=== PATIENT | female | born 1990 | race Caucasian/White ===

== ENCOUNTER 2021-03-29 10:17 | Emergency (ER) | payer OTHER, SELFPAY ==
--- NOTE | ~2021-03-29 | XR_ITS ---
EXAMINATION: XR CHEST CLINICAL INFORMATION: Cough COMPARISON: None TECHNIQUE: 2 views of the chest were obtained. FINDINGS: No significant abnormality is noted involving the heart, lungs, mediastinum, bony thorax or soft tissues. XR/XR chest 2V IMPRESSION: Unremarkable examination.
[2021-03-29 10:43] VITALS: BP 114/95; PULSE 100; RESP 18; TEMP 37.3; O2SAT 99; BMI 26.5
[2021-03-29] MEDS: Azithromycin 500 MG TABLET PO (12:05)
[2021-03-29] MEDS: predniSONE 20 MG TABLET 60 MG PO (12:05)
[2021-03-29 12:26] LABS: COVID-19 Test Negative (Negative)
--- NOTE | 2021-03-29 12:28 | ED_ITS ---
HPI - URI/Sore Throat General Chief Complaint: Upper Respiratory Symptoms Stated Complaint: SOB,chest pain Time Seen by Provider: 03/29/21 11:44 Source: patient Mode of arrival: ambulatory Limitations: no limitations History of Present Illness HPI Narrative: 30-year-old female with a past medical history of asthma here with complaints cough, chest wall discomfort x1 week. Seen in urgent care initially had negative COVID screen. Given test on both having continued symptoms. Shortness of breath, leg swelling, pain, vomiting, diarrhea, abdominal pain. No fevers or chills. She is fully immunized with COVID vaccine Related Data Previous Rx's Medication Instructions Recorded acetaminophen-DM [Robitussin 20 ml PO Q4H PRN #237 ml 03/29/21 Cough-Sore Throat] albuterol sulfate 2 inh INHALATION Q4H PRN #1 ea 03/29/21 azithromycin 250 mg PO DAILY 4 Days #4 tab 03/29/21 prednisone 40 mg PO DAILY #8 tab 03/29/21 Allergies Allergy/AdvReac Type Severity Reaction Status Date / Time amoxicillin [AMOXICILLIN] Allergy Unknown HIVES Verified 03/29/21 10:42 Review of Systems Review of Systems: Yes all other systems are reviewed and are negative Constitutional: Constitutional: Reports no additional constitutional complaints, Denies body ache(s), Denies chills, Denies fever(s), Denies headache(s) and Denies weakness Eyes: Eyes: Reports no additional eye complaints and Denies change in vision ENT: Reports system reviewed and no additional complaints, except as documented, Denies dizziness, Denies headache(s), Denies nasal congestion, Denies nasal discharge and Denies neck pain Cardiovascular: Cardiovascular: Reports no additional cardiovascular co mplaints, Reports chest pain, Denies leg edema and Denies dyspnea Respiratory: Respiratory: Reports no additional respiratory complaints, Reports cough and Denies dyspnea Gastrointestinal: Gastrointestinal: Reports no additional gastrointestinal complaints, Denies abdominal pain, Denies diarrhea, Denies nausea and Denies vomiting Genitourinary: Genitourinary: Reports no additional female genitourinary complaints and Denies urinary incontinence Musculoskeletal: Musculoskeletal: Reports no additional musculoskeletal complaints, Denies back pain, Denies arthralgias, Denies joint swelling, Denies neck pain, Denies numbness and Denies tingling Integumentary/Breasts: Skin/Breast: Reports system reviewed and no additional complaints, except as docu and Denies rash Neurologic: Denies Abnormal speech present, Denies dizziness, Denies headache(s), Denies numbness, Denies tingling and Denies weakness PMFSH Past Medical History Attestation statement: The following information was validated with the patient. Source: old records reviewed and nursing notes reviewed Medical History Asthma Social History Social History Advance Directives: Yes Advance Directives Information Provided: No Advance Directives on File: No Physical Exam Vital Signs: Vital Signs: Last Vital Signs Temp 99.1 F 03/29/21 10:43 Pulse 100 03/29/21 10:43 Resp 18 03/29/21 10:43 BP 114/95 H 03/29/21 10:43 Pulse Ox 99 03/29/21 10:43 Body Mass Index 26.5 Const: General: cooperative, healthy appearing, comfortable and no acute distress Orientation/consciousness: patient oriented x3 Limitations: no limitations HENMT: Head: Yes normal to inspection Ears: hearing grossly normal bilaterally General nose exam: Normal external nose present Face and sinus: Yes normal facial exam Mouth: Normal oral and palatal mucosa present Throat: Yes posterior oropharynx normal Eyes: General: appearance normal, both eyes and all related structures Pupils: Equal, round and reactive pupils present Neck: Neck: Yes normal visual inspection Chest: Chest palpation & inspection: normal inspection of the chest Resp: Other: Prolonged expirations, mild expiratory wheezing Effort & Inspection: normal respiratory effort Auscultation: clear to auscultation bilaterally Cardio: Rate: regular rate Rhythm: regular rhythm Peripheral pulses: Peripheral pulses 2+ throughout GI: Inspection: Yes normal to inspection Palpation (GI): Soft to palpation and nontender Auscultation: normal bowel sounds Back/Spine/Pelvis: Thoracic/Lumbar Spine: thoracic and lumbar spine normal to inspection Skin: General skin exam: no rashes or lesions noted Neuro: General: patient oriented x3, no focal motor deficits and normal sensation to monofilament Cranial nerves: Yes Equal, round and reactive pupils present Cognition (Neuro): normal cognition Speech: No Abnormal speech present Gait exam (Neuro): Normal gait present Motor exam (neuro): 5/5 motor strength present throughout Extrem: General: Yes normal to inspection, Yes no pedal edema and Yes no calf tenderness Course Course Course Narrative: URI symptoms x1 week despite supportive measures. Will check x-ray and COVID screen. 1200-COVID screen negative. Chest x-ray shows no acute finding. Likely bronchitis. Will treat with course of antibiotics and prednisone. Reviewed worrisome signs and symptoms and when to return to the emergency department. Comfortable discharge home. MDM - URI/Sore Throat Differential Diagnosis Differential diagnosis: Likely upper respiratory infection Medical Records Attestation: I reviewed the patient's medical records. Lab Data Attestation: I reviewed the patient's lab results. Labs: Lab Results 03/29/21 Range/Units 11:58 COVID-19 (EMILIANO) Negative (Negative) COVID-19 Clin Com See Note Imaging Data Chest x-ray: Attestation: I personally reviewed and interpreted this imaging study as follows: Radiologist's impression: dure(s): XR chest 2V Accession Number(s): [id number] cc: Generic ED Physician~ EXAMINATION: XR CHEST CLINICAL INFORMATION: Cough COMPARISON: None TECHNIQUE: 2 views of the chest were obtained. FINDINGS: No significant abnormality is noted involving the heart, lungs, mediastinum, bony thorax or soft tissues. XR/XR chest 2V IMPRESSION: Unremarkable examination. Discharge Plan Discharge Clinical Impression: Bronchitis Patient Disposition: Home, Self-Care Instructions: Acute Bronchitis (ED) Additional Instructions: COVID test negative Next dose of prednisone and antibiotics tomorrow Increase fluids, rest Continue your inhaler as needed Motrin or Tylenol for pain or fever Prescriptions: New azithromycin 250 mg tablet 250 mg PO DAILY 4 Days Qty: 4 RF: 0 prednisone 20 mg tablet 40 mg PO DAILY Qty: 8 RF: 0 albuterol sulfate 90 mcg/actuation aerosol powdr breath activated 2 inh inhalation Q4H PRN (Reason: shortness of breath or wheezing) Qty: 1 RF: 0 Robitussin Cough-Sore Throat 325-10 mg/10 mL liquid 20 ml PO Q4H PRN (Reason: cold symptoms) Qty: 237 RF: 0 Referrals: Terri Nguyen MD [Primary Care Provider] - 2 days Stand Alone Forms: Work/School Release
== END 2021-03-29 12:45 | disposition home or self-care (01) ==
PROVIDERS: Nurse Practitioner Family; Emergency Provider Emergency Medicine Emergency Medical Services; PCP Internal Medicine
DX: J40 Bronchitis, not specified as acute or chronic (principal); Z20.822 Contact with and (suspected) exposure to COVID-19; R06.02 Shortness of breath; J45.909 Unspecified asthma, uncomplicated; Z79.899 Other long term (current) drug therapy
CPT/HCPCS: 36415; 71046; 87635; 99283

== ENCOUNTER 2023-05-10 06:17 | Emergency (ER) | payer MEDICAID, SELFPAY ==
--- NOTE | 2023-05-10 | ECG_ITS ---
Test Reason : chest pain Blood Pressure : / mmHG Vent. Rate : 074 BPM Atrial Rate : 074 BPM P-R Int : 136 ms QRS Dur : 070 ms QT Int : 376 ms P-R-T Axes : 049 049 029 degrees QTc Int : 417 ms Sinus rhythm with Premature atrial complexes Otherwise normal ECG No previous ECGs available Referred By: Generic ED Physician Electronically Signed By:SARA GARNER
--- NOTE | ~2023-05-10 | XR_ITS ---
EXAMINATION: XR CHEST CLINICAL INFORMATION: Cough, chest pain, shortness of breath. COMPARISON: 03/29/2021 TECHNIQUE: Frontal view of the chest was obtained. FINDINGS: Lungs are well-inflated and clear. Trachea is midline in position. No interstitial disease, consolidation or mass. No pleural effusion or pneumothorax. Cardiac silhouette and pulmonary vessels are normal in size. The mediastinum and mehrdad have normal contour. EKG leads overlie the chest. The visualized bones and upper abdomen are unremarkable. XR/XR chest 1V IMPRESSION: No acute cardiopulmonary abnormality.
[2023-05-10 06:25] VITALS: BP 120/63; PULSE 73; RESP 18; TEMP 36.8; O2SAT 98; BMI 27.5
[2023-05-10 06:38] LABS: Hematocrit 40.2 % (37.0-47.0); Hemoglobin 12.9 g/dl (12.0-16.0); Mean Corpuscular HGB Conc 32.1 g/dl (31.0-35.0); Mean Platelet Volume 9.3 fL (9.4-12.3); Platelet Count 278 X10*3/uL (160-400); Red Blood Count 4.96 X10*6/uL (4.20-5.50); White Blood Count 8.9 X10*3/uL (4.8-10.8)
[2023-05-10 06:52] LABS: Alanine Aminotransferase 29 U/L (0-31); Alkaline Phosphatase 76 U/L (39-117); Anion Gap 11 (12-20); Aspartate Amino Transferase 24 U/L (5-31); Bilirubin Total 0.5 mg/dL (0.0-1.0); Blood Urea Nitrogen 17 mg/dL (9-16); Calcium 9.2 mg/dL (8.4-10.2); Carbon Dioxide 26 mmol/L (22-29); Chloride 109 mmol/L (96-108); Creatinine Clr Calc Pharmacy 96.7; Estimated Glomerular Filt Rate > 60; Glucose Random 90 mg/dL (60-115); Potassium 4.1 mmol/L (3.3-5.1); Sodium 142 mmol/L (135-145); Total Protein 6.7 g/dL (6.5-8.0)
--- NOTE | 2023-05-10 07:08 | ED.CHESTPAIN ---
HPI - Chest Pain General Chief Complaint: Chest Pain Stated Complaint: Chest Pain Time Seen by Provider: 05/10/23 07:07 Source: patient, RN notes reviewed and old records reviewed Mode of arrival: ambulatory History of Present Illness HPI narrative: 32-year-old female with a past medical history of asthma presenting to the ED complaining of intermittent substernal chest pain x5 days with associated migraine headache, dry cough, left ear pain, and mild SOB. Admits has been taking her sumatriptan at home without relief. Headache not maximal at onset. Denies recent travel, fever/chills, sick contacts, cigarette smoking, sore throat, pedal edema MD complaint: chest pain Related Data Previous Rx's Medication Instructions Recorded acetaminophen 325 mg-DM 10 mg/10 20 ml PO Q4H PRN cold symptoms 03/29/21 mL oral liquid (Robitussin #237 mL Cough-Sore Throat) albuterol sulfate 90 mcg/actuation 2 inh inhalation Q4H PRN shortness 03/29/21 breath activated powder inhaler of breath or wheezing #1 ea azithromycin 250 mg tablet 250 mg PO DAILY 4 days #4 tabs 03/29/21 prednisone 20 mg tablet 40 mg PO DAILY #8 tabs 03/29/21 Allergies Allergy/AdvReac Type Severity Reaction Status Date / Time amoxicillin [AMOXICILLIN] Allergy Unknown HIVES Verified 03/29/21 10:42 Review of Systems Review of Systems: Constitutional: No Fever, No Chills, + Fatigue, No Malaise ENT/Mouth: No Hearing loss, No Ear Pain, No Nasal Congestion, No sore throat, No Rhinorrhea, No Swallowing Difficulty Eyes: No Eye Pain, No Swelling,No Vision Changes Cardiovascular: + Chest Pain, + SOB, No Dyspnea on Exertion, No Orthopnea, No Edema, No Palpitations Respiratory: + Cough, No Sputum, No Wheezing, No Dyspnea Gastrointestinal: No Nausea, No Vomiting, No Diarrhea, No Constipation, No Abdominal pain Musculoskeletal: No joint pain, No Myalgias, No Joint Swelling Skin: No Skin Lesions, No rash Neuro: No Weakness, No Numbness, No Dizziness, + Headache Yes all other systems are reviewed and are negative Constitutional: Constitutional: Reports as per [facility] Past Medical History Attestation statement: The following information was validated with the patient. Source: old records reviewed Medical History Asthma Social History Social History Smoked in Last 30 Days: No Use of substances other than those prescribed or required for medical reasons: No Advance Directives: No Advance Directives Information Provided: No Physical Exam Vital Signs: Vital Signs: Last Vital Signs Temp 98.1 F 05/10/23 10:23 Pulse 71 05/10/23 10:23 Resp 13 05/10/23 10:23 BP 97/60 05/10/23 10:23 Pulse Ox 98 05/10/23 10:23 O2 Del Method Room Air 05/10/23 10:23 BMI result Body Mass Index 27.5 Const: General: cooperative, healthy appearing and no acute distress Orientation/consciousness: patient oriented x3 Limitations: no limitations HEENT: Head: Yes normal to inspection and Yes atraumatic Ears: hearing grossly normal bilaterally, external ears normal, TM's normal bilaterally and mastoids normal General nose exam: Normal external nose present Face and sinus: Yes normal facial exam Mouth: Normal oral and palatal mucosa present Throat: Yes posterior oropharynx normal, Yes tonsils normal and Yes uvula midline Eyes: General: appearance normal, both eyes and all related structures EOM: EOMs intact bilaterally Neck: Neck: Yes normal visual inspection and Yes no meningeal signs Resp: Effort & Inspection: normal respiratory effort and no respiratory distress Auscultation: clear to auscultation bilaterally, no crackles, no rhonchi and no wheezes Cardio: Rate: regular rate Heart sounds: S1 normal heart sound present and S2 normal heart sound present GI: Inspection: Yes normal to inspection Palpation (GI): Soft to palpation, nontender, no guarding and not rigid : General: Yes no CVA tenderness Back/Spine/Pelvis: Back: no CVA tenderness Skin: Rashes: no rashes Wounds: no wounds Neuro: General: patient oriented x3, tone normal and no meningeal signs Cranial nerves: Yes CN's II-XII intact bilaterally Gait exam (Neuro): Normal gait present Extrem: General: Yes normal to inspection Course Course Course Narrative: -0935--labs reassuring, troponin negative. COVID and influenza negative XR chest 1V IMPRESSION: No acute cardiopulmonary abnormality. -on re-evaluation results discussed, patient reports continued headache will try p.o. Fioricet -1045--on re-evaluation patient reports symptomatic improvement/headache resolved after p.o. Fioricet >> Results discussed with patient including worrisome signs and symptoms and strict return precautions, and when to return to the emergency department. They verbalized understanding and feel safe for discharge at this time. Medications Administered Discontinued Medications Generic Name Dose Route Start Last Admin Trade Name Freq PRN Reason Stop Dose Admin Acetaminophen/Butalbital/Caffeine 2 tab 05/10/23 09:37 05/10/23 10:20 Butalb/Acetamin/Caff 50/325/40 Tablet PO 05/10/23 09:38 2 tab ONCE ONE Administration Diphenhydramine HCl 12.5 mg 05/10/23 07:27 05/10/23 07:34 Diphenhydramine Hcl 50 Mg/Ml Vial IVPUSH 05/10/23 07:28 12.5 mg ONCE ONE Administration Ketorolac Tromethamine 15 mg 05/10/23 07:27 05/10/23 07:34 Ketorolac Tromethamine 15 Mg/Ml Vial IVPUSH 05/10/23 07:28 15 mg ONCE ONE Administration Metoclopramide HCl 10 mg 05/10/23 07:27 05/10/23 07:34 Metoclopramide Hcl 10 Mg/2 Ml Vial IVPUSH 05/10/23 07:28 10 mg ONCE ONE Administration Medical Decision Making Medical Decision Making MDM Narrative: 32-year-old female with a past medical history of asthma presenting to the ED complaining of intermittent substernal chest pain x5 days with associated migraine headache, dry cough, left ear pain, and mild SOB. On exam vital signs stable, NAD, nontoxic appearing, chest pain not reproducible, lungs CTA, exam otherwise nonfocal. Concern for viral syndrome vs bronchitis, rule out pneumonia. Concern for migraine headache. Low suspicion for meningitis/encephalitis, ICH, otitis media/externa. Symptoms atypical PE/ACS Plan: EKG, labs, viral testing, CXR, IVF, Toradol/Reglan/Benadryl Please refer to course for remaining clinical decision making, interpretation of labs/imaging results, and discussions with consultants and/or family members. Differential Diagnosis Differential Diagnoses: The differential diagnosis associated with the presentation includes As above Admission/Observation Consideration of admission/observation: Escalation of care including admission/observation considered Lab Data MDM Lab Attestation statement: I reviewed the patient's lab results. 05/10/23 06:31 05/10/23 06:31 Labs: Lab Results 05/10/23 05/10/23 05/10/23 Range/Units 06:31 06:31 06:31 WBC 8.9 (4.8-10.8) X10*3/uL RBC 4.96 (4.20-5.50) X10*6/uL Hgb 12.9 (12.0-16.0) g/dl Hct 40.2 (37.0-47.0) % MCV 81.0 (80.0-98.0) fL MCH 26.0 L (27.0-33.0) pg MCHC 32.1 (31.0-35.0) g/dl RDW 14.0 (11.0-16.0) % Plt Count 278 (160-400) X10*3/uL MPV 9.3 L (9.4-12.3) fL Immature Gran % (Auto) 0.2 (0.0-0.4) % Neut % (Auto) 55.9 (45-73) % Lymph % (Auto) 35.8 (20-40) % [place] % (Auto) 5.5 (2-11) % Eos % (Auto) 1.9 (0-4) % Baso % (Auto) 0.7 (0-2) % Lymph # (Auto) 3.2 (1.2-4.9) X10*3/uL [place] # (Auto) 0.5 (0.1-1.2) X10*3/uL Eos # (Auto) 0.2 (0.0-0.4) X10*3/uL Baso # (Auto) 0.1 (0.0-0.2) X10*3/uL Abs Immat Gran (auto) 0.02 (0.00-0.03) X10*3/uL Absolute Neuts (auto) 4.9 (2.0-8.3) x10*3/uL Absolute Nucleated RBC 0.000 (0.0-0.012) X10*3/uL Nucleated RBC % (auto) 0.0 (0.0-0.2) /100WBC Sodium 142 (135-145) mmol/L Potassium 4.1 (3.3-5.1) mmol/L Chloride 109 H (96-108) mmol/L Carbon Dioxide 26 (22-29) mmol/L Anion Gap 11 L (12-20) BUN 17 H (9-16) mg/dL Creatinine 0.83 (0.5-1.4) mg/dL Estim Creat Clear Calc 96.7 Estimated GFR > 60 Random Glucose 90 (60-115) mg/dL Calcium 9.2 (8.4-10.2) mg/dL Total Bilirubin 0.5 (0.0-1.0) mg/dL AST 24 (5-31) U/L ALT 29 (0-31) U/L Alkaline Phosphatase 76 (39-117) U/L Troponin I High Sens < 2.7 (<3.5-17.0) ng/L Total Protein 6.7 (6.5-8.0) g/dL Albumin 4.0 (3.5-5.0) g/dL COVID-19 (EMILIANO) (Negative) COVID-19 Clin Com Influenza Type A (RAFAEL) (Negative) Influenza Type B (RAFAEL) (Negative) Influenza A & B Note 05/10/23 05/10/23 Range/Units 07:44 07:44 WBC (4.8-10.8) X10*3/uL RBC (4.20-5.50) X10*6/uL Hgb (12.0-16.0) g/dl Hct (37.0-47.0) % MCV (80.0-98.0) fL MCH (27.0-33.0) pg MCHC (31.0-35.0) g/dl RDW (11.0-16.0) % Plt Count (160-400) X10*3/uL MPV (9.4-12.3) fL Immature Gran % (Auto) (0.0-0.4) % Neut % (Auto) (45-73) % Lymph % (Auto) (20-40) % [place] % (Auto) (2-11) % Eos % (Auto) (0-4) % Baso % (Auto) (0-2) % Lymph # (Auto) (1.2-4.9) X10*3/uL [place] # (Auto) (0.1-1.2) X10*3/uL Eos # (Auto) (0.0-0.4) X10*3/uL Baso # (Auto) (0.0-0.2) X10*3/uL Abs Immat Gran (auto) (0.00-0.03) X10*3/uL Absolute Neuts (auto) (2.0-8.3) x10*3/uL Absolute Nucleated RBC (0.0-0.012) X10*3/uL Nucleated RBC % (auto) (0.0-0.2) /100WBC Sodium (135-145) mmol/L Potassium (3.3-5.1) mmol/L Chloride (96-108) mmol/L Carbon Dioxide (22-29) mmol/L Anion Gap (12-20) BUN (9-16) mg/dL Creatinine (0.5-1.4) mg/dL Estim Creat Clear Calc Estimated GFR Random Glucose (60-115) mg/dL Calcium (8.4-10.2) mg/dL Total Bilirubin (0.0-1.0) mg/dL AST (5-31) U/L ALT (0-31) U/L Alkaline Phosphatase (39-117) U/L Troponin I High Sens (<3.5-17.0) ng/L Total Protein (6.5-8.0) g/dL Albumin (3.5-5.0) g/dL COVID-19 (EMILIANO) Negative (Negative) COVID-19 Clin Com See Note Influenza Type A (RAFAEL) Negative (Negative) Influenza Type B (RAFAEL) Negative (Negative) Influenza A & B Note See Note Independent Interpretation I performed an independent interpretation of an: EKG Radiology Impression Discussion of test interpretation with radiology: I have reviewed the radiologist's reading. External Record Review External record reviewed: Inpatient record, Office record, Outpatient record, Prior outpatient labs, Prior outpatient radiology, Primary care record and Outside ED record Tests considered The following testing was considered but not selected: As above Prescription Management I considered prescription management with: Pain Medication Chronic Conditions Patient?s care impacted by: Other (asthma) Discharge Plan Discharge Clinical Impression: Atypical chest pain, Acute viral syndrome, Migraine Patient Disposition: Home, Self-Care Instructions: Migraine Headache (ED), Viral Syndrome (ED), Noncardiac Chest Pain (ED) Additional Instructions: Your blood work and chest x-ray were reassuring You tested negative for COVID and flu Continue home prescribed medications In addition your set is a combination headache medicine take as needed Make sure staying hydrated Follow up with her doctor If symptoms persist or worsen return to the emergency department Prescriptions: No Action azithromycin 250 mg tablet 250 mg PO DAILY 4 Days Qty: 4 0RF Rx Instructions: start on day 2 of therapy prednisone 20 mg tablet 40 mg PO DAILY Qty: 8 0RF albuterol sulfate 90 mcg/actuation aerosol powdr breath activated 2 inh inhalation Q4H PRN (Reason: shortness of breath or wheezing) Qty: 1 0RF Robitussin Cough-Sore Throat 325-10 mg/10 mL liquid 20 ml PO Q4H PRN (Reason: cold symptoms) Qty: 237 0RF Referrals: Clemencia Caballero MD [Primary Care Provider] -
[2023-05-10 07:11] LABS: Troponin-I High Sensitivity < 2.7 ng/L (<3.5-17.0)
[2023-05-10 07:27] VITALS: BP 115/72; PULSE 67; PULSE 68; RESP 16; O2SAT 97
[2023-05-10] MEDS: Ketorolac Tromethamine 15 MG/ML VIAL IVPUSH (07:34)
[2023-05-10] MEDS: Metoclopramide HCl 10 MG/2 ML VIAL IVPUSH (07:34)
[2023-05-10] MEDS: diphenhydrAMINE HCL 50 MG/ML VIAL 12.5 MG IVPUSH (07:34)
--- NOTE | 2023-05-10 07:46 | PC.NURSE ---
pt axox4, respirations even and unlabored, sats 98% RA, NSR on monitor 67 bpm, lung sounds cta. pt reports cp x 1 week, onset with CORRALES/cough/nausea. pt reports ears feel blocked; denies other uri sx. pt medicated per nov. nasal swabs obtained; awaiting results. pt denies questions/concerns at this time. call [facility] within reach.
[2023-05-10 07:47] LABS: MANUAL DIFF FLAG NO
[2023-05-10 07:54] LABS: Basophils Absolute Auto 0.1 X10*3/uL (0.0-0.2); Basophils Percent Auto 0.7 % (0-2); Eosinophils Absolute Auto 0.2 X10*3/uL (0.0-0.4); Eosinophils Percent Auto 1.9 % (0-4); Imm Gran Abs Auto 0.02 X10*3/uL (0.00-0.03); Imm Gran Pct Auto 0.2 % (0.0-0.4); Lymphocytes Absolute Auto 3.2 X10*3/uL (1.2-4.9); Lymphocytes Percent Auto 35.8 % (20-40); Monocytes Absolute Auto 0.5 X10*3/uL (0.1-1.2); Monocytes Percent Auto 5.5 % (2-11); Neutrophils Absolute Auto 4.9 x10*3/uL (2.0-8.3); Neutrophils Percent Auto 55.9 % (45-73)
[2023-05-10 08:19] LABS: COVID-19 Test Negative (Negative); IDNOW Serial# 08D9AD1C
[2023-05-10 08:21] LABS: IDNOW Serial# 55D5AD1C; Influenza A Negative (Negative); Influenza B2 Negative (Negative)
[2023-05-10 09:24] VITALS: BP 101/61; PULSE 77; RESP 16; O2SAT 99
[2023-05-10] MEDS: Butalb/Acetamin/Caff 50/325/40 TABLET 2 TAB PO (10:20)
[2023-05-10 10:23] VITALS: BP 97/60; PULSE 71; RESP 13; TEMP 36.7; O2SAT 98
== END 2023-05-10 11:08 | disposition home or self-care (01) ==
PROVIDERS: Physician Assistant; Emergency Provider Emergency Medicine; PCP Internal Medicine
DX: B34.9 Viral infection, unspecified (principal); R07.89 Other chest pain; G43.909 Migraine, unspecified, not intractable, without status migrainosus; R06.02 Shortness of breath; J45.909 Unspecified asthma, uncomplicated; Z79.899 Other long term (current) drug therapy; Z20.822 Contact with and (suspected) exposure to COVID-19
CPT/HCPCS: 36415; 71045; 80053; 84484; 85025; 85027; 87502; 87635; 93005; 96374; 96375; 99284; 99285; J1200; J1885; J2765